=== PATIENT | male | born 1950 | race Hispanic/Latino ===

== ENCOUNTER 2017-12-22 11:18 | Observation (INO) | payer BC, MEDICARE ==
[~2017-12-22] VITALS: Ht 157.5 cm; Wt 81.9 kg
[2017-12-22 11:47] LABS: BASOPHILS % (AUTO) 0.5 % (0.0-5.0); EOSINOPHILS % (AUTO) 0.4 % (0.0-8.0); HEMATOCRIT 29.4 % (42-54); LYMPHOCYTES % (AUTO) 7.2 % (21.0-51.0); MEAN CORPUSCULAR HEMOGLOBIN 31.7 pg (27.0-33.0); MEAN CORPUSCULAR HGB CONC 36.4 g/dL (32.0-36.0); MEAN CORPUSCULAR VOLUME 87.2 fL (79-99); MONOCYTES % (AUTO) 9.2 % (3.0-13.0); NEUTROPHILS % (AUTO) 82.7 % (40.0-77.0); PLATELET COUNT (AUTO) 302 K/uL (130-400); RED BLOOD CELL COUNT(AUTO) 3.37 MIL/uL (4.50-6.20); RED CELL DISTRIBUTION WIDTH 13.7 % (11.0-15.5); WHITE BLOOD COUNT (AUTO) 10.7 K/uL (4.8-10.8)
[2017-12-22 12:04] LABS: ALBUMIN 2.7 g/dL (3.5-5.0); BILIRUBIN,TOTAL 0.6 mg/dL (0.2-1.0); POTASSIUM 3.3 mmol/L (3.5-5.1); TOTAL PROTEIN, SERUM 6.7 g/dL (6.0-8.3)
[2017-12-22] MEDS ORDERED: NITROGLYCERIN 0.4 MG SL TAB SL PRN (13:45)
[2017-12-22] MEDS ORDERED: DiphenhydrAMINE HCL 50 MG/ML VIAL IVP PRN (13:45)
[2017-12-22] MEDS ORDERED: GUAIFENESIN-DM 200/20 MG 10 ML PO PRN (13:45)
[2017-12-22] MEDS ORDERED: ONDANSETRON HCL 4 MG/2 ML VIAL IVP PRN (13:45)
[2017-12-22] MEDS ORDERED: MAG HYDROX/AL HYDROX/SIMETH ES 30 ML SUSP UDCUP PO PRN (13:45)
[2017-12-22] MEDS ORDERED: LACTULOSE 20 GM/30 ML UDCUP PO PRN (13:45)
[2017-12-22] MEDS ORDERED: SODIUM CHLORIDE 0.9% 10 ML VIAL IVP SCH (13:45)
[2017-12-22] MEDS ORDERED: CLONIDINE HCL 0.1 MG TABLET PO PRN (13:45)
[2017-12-22] MEDS ORDERED: ACETAMINOPHEN 325 MG TAB PO PRN ×2 (13:45)
[2017-12-22] MEDS ORDERED: ZOLPIDEM TARTRATE 5 MG TAB PO PRN (13:45)
[2017-12-22] MEDS ORDERED: DIPHENHYDRAMINE HCL 25 MG CAPSULE PO PRN (13:45)
[2017-12-22 14:00] VITALS: BP 156/93
[2017-12-22] MEDS ORDERED: LISI1TAB11 PO (15:20)
[2017-12-22] MEDS ORDERED: HYDR-4153 PO (15:20)
[2017-12-22] MEDS ORDERED: ATOR20TA65 PO (15:20)
[2017-12-22] MEDS ORDERED: PANT40TA25 PO (15:20)
[2017-12-22] MEDS ORDERED: CARV25TA PO (15:20)
[2017-12-22 16:00] VITALS: BP 133/79
[2017-12-22 19:35] VITALS: BP 140/79
[2017-12-22] MEDS: FAMOTIDINE 20MG TAB 20 MG TAB PO SCH (20:51)
[2017-12-22] MEDS: CARVEDILOL 25 MG TABLET PO SCH (20:53)
[2017-12-22] MEDS ORDERED: AEC81 PO (20:54)
[2017-12-22 23:30] VITALS: BP 103/58
[2017-12-23 03:35] VITALS: BP 116/65
[2017-12-23 04:02] LABS: MEAN CORPUSCULAR HGB CONC 35.4 g/dL (32.0-36.0); MEAN CORPUSCULAR VOLUME 87.6 fL (79-99); PLATELET COUNT (AUTO) 268 K/uL (130-400); RED BLOOD CELL COUNT(AUTO) 3.32 MIL/uL (4.50-6.20); RED CELL DISTRIBUTION WIDTH 13.8 % (11.0-15.5); WHITE BLOOD COUNT (AUTO) 9.1 K/uL (4.8-10.8)
[2017-12-23 04:04] LABS: POTASSIUM 3.8 mmol/L (3.5-5.1)
[2017-12-23 08:00] VITALS: BP_SYST 128; BP_SYST 146; BP_DIAS 78; BP_DIAS 80
[2017-12-23] MEDS ORDERED: HYDRALAZINE HCL 25 MG TABLET PO SCH (09:00)
[2017-12-23] MEDS ORDERED: LISINOPRIL 20 MG TABLET PO SCH (09:00)
[2017-12-23] MEDS ORDERED: POTASSIUM CHLORIDE 20 MEQ ERTAB PO PRN (09:15)
[2017-12-23] MEDS ORDERED: POTASSIUM CHLORIDE 10% ELIXIR 20 MEQ/15 ML UDCUP PO PRN (09:15)
[2017-12-23] MEDS ORDERED: POTASSIUM CHLORIDE 20MEQ/100ML 100 ML IV PRN (09:15)
[2017-12-23] MEDS ORDERED: LIDOCAINE HCL-MPF 1% 2ML VIAL IVP PRN (09:15)
[2017-12-23] MEDS ORDERED: MAGNESIUM 2GM PREMIX 50ML 50 ML IV SCH (09:15)
[2017-12-23] MEDS: ASPIRIN 81 MG EC TAB PO SCH (09:19)
[2017-12-23] MEDS: HYDROCHLOROTHIAZIDE 25 MG TABLET PO SCH (09:19)
[2017-12-23] MEDS: ATORVASTATIN CALCIUM 20 MG TABLET PO SCH (09:19)
[2017-12-23] MEDS: CARVEDILOL 25 MG TABLET PO SCH ×2 (09:20→21:52)
[2017-12-23] MEDS: PANTOPRAZOLE SODIUM 40 MG TABLET.DR PO SCH (09:21)
[2017-12-23] MEDS: FAMOTIDINE 20MG TAB 20 MG TAB PO SCH ×2 (09:21→21:52)
[2017-12-23] MEDS: FUROSEMIDE 10 MG/ML 4ML VIAL IV SCH ×2 (09:21→21:51)
[2017-12-23 11:00] VITALS: BP 108/64
[2017-12-23 16:00] VITALS: BP 100/57
[2017-12-23 19:56] VITALS: BP 105/60
[2017-12-23 23:46] VITALS: BP 91/58
[2017-12-24 04:00] VITALS: BP 117/67
[2017-12-24 05:37] LABS: MAGNESIUM 1.9 mg/dL (1.80-2.40); POTASSIUM 3.5 mmol/L (3.5-5.1)
[2017-12-24 08:00] VITALS: BP 127/65
[2017-12-24] MEDS: FUROSEMIDE 10 MG/ML 4ML VIAL IV SCH (10:20)
[2017-12-24] MEDS: FAMOTIDINE 20MG TAB 20 MG TAB PO SCH (10:23)
[2017-12-24] MEDS: ATORVASTATIN CALCIUM 20 MG TABLET PO SCH (10:23)
[2017-12-24] MEDS: ASPIRIN 81 MG EC TAB PO SCH (10:23)
[2017-12-24 10:24] VITALS: BP 127/65
[2017-12-24] MEDS: CARVEDILOL 25 MG TABLET PO SCH (10:24)
[2017-12-24] MEDS: HYDROCHLOROTHIAZIDE 25 MG TABLET PO SCH (10:25)
[2017-12-24] MEDS: PANTOPRAZOLE SODIUM 40 MG TABLET.DR PO SCH (10:25)
[2018-04-08] MEDS ORDERED: LISI2.5T2 PO (16:20)
[2018-04-08] MEDS ORDERED: CLOP75TA32 PO (16:20)
[2018-04-08] MEDS ORDERED: CARV6.25 PO (16:20)
[2018-04-08] MEDS ORDERED: POTA10TA14 PO (16:20)
[2018-04-08] MEDS ORDERED: HYDR12.54 PO (16:20)
[2018-04-08] MEDS ORDERED: ATOR40TA71 PO (16:20)
== END 2017-12-24 14:45 | disposition home or self-care (01) ==
LOC: EDH 11:18 → EDHIP 12:02 → 3AH 13:00
PROVIDERS: ADMIT Family Medicine; ATTEND Family Medicine
DX: E86.1 Hypovolemia (principal); E87.1 Hypo-osmolality and hyponatremia; E87.70 Fluid overload, unspecified; E78.5 Hyperlipidemia, unspecified; I10 Essential (primary) hypertension; R53.81 Other malaise
CPT/HCPCS: 36415 ×3; 80048 ×2; 80053; 83735; 85025; 85027; 87177; 87205; 96365; 96375; 96376 ×2; 99285; G0378 ×51; J1940 ×3; J3475

== ENCOUNTER 2018-02-21 13:58 | Emergency (ER) | payer BC, MEDICARE ==
[~2018-02-21 13:58] MED LIST: AEC81 PO; ATOR20TA65 PO; CARV25TA PO; HYDR-4153 PO; LISI1TAB11 PO; PANT40TA25 PO
[2018-02-21 15:19] LABS: BASOPHILS % (AUTO) 0.9 % (0.0-5.0); EOSINOPHILS % (AUTO) 2.1 % (0.0-8.0); HEMATOCRIT 38.2 % (42-54); LYMPHOCYTES % (AUTO) 19.6 % (21.0-51.0); MEAN CORPUSCULAR HEMOGLOBIN 28.1 pg (27.0-33.0); MEAN CORPUSCULAR HGB CONC 33.4 g/dL (32.0-36.0); MEAN CORPUSCULAR VOLUME 84.2 fL (79-99); MONOCYTES % (AUTO) 7.5 % (3.0-13.0); NEUTROPHILS % (AUTO) 69.9 % (40.0-77.0); PLATELET COUNT (AUTO) 295 K/uL (130-400); RED BLOOD CELL COUNT(AUTO) 4.54 MIL/uL (4.50-6.20); RED CELL DISTRIBUTION WIDTH 15.9 % (11.0-15.5); WHITE BLOOD COUNT (AUTO) 7.6 K/uL (4.8-10.8)
[2018-02-21 15:19] LABS: APPEARANCE,URINE Clear (CLEAR); BILIRUBIN,URINE Negative (NEGATIVE); COLOR,URINE Yellow (YELLOW); GLUCOSE, URINE (UA) Negative (NEGATIVE); KETONES,URINE Negative (NEGATIVE); LEUKOCYTE ESTERASE ,URINE Negative (NEGATIVE); NITRATE,URINE Negative (NEGATIVE); OCCULT BLOOD,URINE Negative (NEGATIVE); PROTEIN,URINE Negative (NEGATIVE); UROBILINOGEN,URINE 0.2 mg/dL (0.2-1.0)
[2018-02-21 15:30] LABS: CREATININE 0.9 mg/dL (0.5-1.5); POTASSIUM 3.5 mmol/L (3.5-5.1)
[2018-02-21 15:35] LABS: ALBUMIN 3.9 g/dL (3.5-5.0); TOTAL PROTEIN, SERUM 7.7 g/dL (6.0-8.3)
[2018-02-21 15:42] LABS: B-TYPE NATRIURETIC PEPTIDE 3180 pg/mL (0-100)
[2018-02-21] MEDS ORDERED: ASPIRIN 325 MG TABLET ONE (16:38)
[2018-04-08] MEDS ORDERED: CLOP75TA32 PO (16:20)
[2018-04-08] MEDS ORDERED: HYDR12.54 PO (16:20)
[2018-04-08] MEDS ORDERED: ATOR40TA71 PO (16:20)
[2018-04-08] MEDS ORDERED: LISI2.5T2 PO (16:20)
[2018-04-08] MEDS ORDERED: CARV6.25 PO (16:20)
[2018-04-08] MEDS ORDERED: POTA10TA14 PO (16:20)
== END 2018-02-21 18:50 ==
LOC: EDH 13:58
DX: R20.0 Anesthesia of skin (principal); R42 Dizziness and giddiness; E78.5 Hyperlipidemia, unspecified; I10 Essential (primary) hypertension; Z86.73 Personal history of transient ischemic attack (TIA), and cerebral infarction without residual deficits
CPT/HCPCS: 36415; 70450; 71046; 80053; 81003; 83880; 84484; 85025; 93005

== ENCOUNTER 2018-04-10 06:26 | Day surgery (SDC) | payer BC, MEDICARE ==
[2018-04-08 11:21] VITALS: BP 118/72
[2018-04-08 11:30] LABS: BASOPHILS % (AUTO) 1.1 % (0.0-5.0); EOSINOPHILS % (AUTO) 2.4 % (0.0-8.0); HEMATOCRIT 36.2 % (42-54); LYMPHOCYTES % (AUTO) 17.9 % (21.0-51.0); MEAN CORPUSCULAR HEMOGLOBIN 26.5 pg (27.0-33.0); MEAN CORPUSCULAR HGB CONC 33.9 g/dL (32.0-36.0); MONOCYTES % (AUTO) 7.7 % (3.0-13.0); NEUTROPHILS % (AUTO) 70.9 % (40.0-77.0); PLATELET COUNT (AUTO) 201 K/uL (130-400); RED BLOOD CELL COUNT(AUTO) 4.64 MIL/uL (4.50-6.20); RED CELL DISTRIBUTION WIDTH 17.9 % (11.0-15.5); WHITE BLOOD COUNT (AUTO) 6.8 K/uL (4.8-10.8)
[2018-04-08 11:32] LABS: APPEARANCE,URINE Clear (CLEAR); BILIRUBIN,URINE Negative (NEGATIVE); COLOR,URINE Yellow (YELLOW); GLUCOSE, URINE (UA) Negative (NEGATIVE); KETONES,URINE Negative (NEGATIVE); LEUKOCYTE ESTERASE ,URINE Trace (NEGATIVE); NITRATE,URINE Negative (NEGATIVE); OCCULT BLOOD,URINE Negative (NEGATIVE); PROTEIN,URINE Trace (NEGATIVE)
[2018-04-08 11:46] LABS: POTASSIUM 4.4 mmol/L (3.5-5.1)
[2018-04-08 11:48] LABS: BACTERIA,URINE Rare /HPF (None Seen); SQUAMOUS EPITHELIAL CELL,UR Rare /HPF (0-2); WBC,URINE 0-1 /HPF (0-1)
[2018-04-08 11:53] LABS: PARTIAL THROMBOPLASTIN TIME 31.3 SEC (26.3-35.5)
[2018-04-08 12:09] LABS: INR 1.18 (0.85-1.15); PROTHROMBIN TIME 12.3 SEC (9.6-11.6)
[2018-04-10] VITALS (9 sets, daily range): BP systolic 101–128; BP diastolic 67–86
[~2018-04-10] VITALS: Ht 158.8 cm; Wt 73.5 kg
[~2018-04-10 06:26] MED LIST changes: -AEC81 PO; -ATOR20TA65 PO; +ATOR40TA71 PO; -CARV25TA PO; +CARV6.25 PO; +CLOP75TA32 PO; -HYDR-4153 PO; +HYDR12.54 PO; -LISI1TAB11 PO; +LISI2.5T2 PO; -PANT40TA25 PO; +POTA10TA14 PO
[2018-04-10] MEDS ORDERED: BIVALIRUDIN 250 MG/VIAL IV ONE (10:15)
[2018-04-10] MEDS ORDERED: NITROGLYCERIN 5 MG/ML 10 ML VIAL IV ONE (10:15)
[2018-04-10] MEDS ORDERED: IOPAMIDOL-370 100 ML VIAL IV ONE (10:16)
[2018-04-10] MEDS ORDERED: LIDOCAINE HCL 2% 20ML ONE (10:16)
[2018-04-10] MEDS ORDERED: ISOVUE-370 50ML VIAL IV ONE (10:16)
[2018-04-10] MEDS ORDERED: FURO40TA5 PO (12:15)
[2018-04-10] MEDS ORDERED: FUROSEMIDE 40 MG TABLET PO SCH (12:15)
== END 2018-04-10 16:45 | disposition home or self-care (01) ==
LOC: DAH 06:26
PROVIDERS: ATTEND Internal Medicine Cardiovascular Disease
DX: I25.10 Atherosclerotic heart disease of native coronary artery without angina pectoris (principal); E78.5 Hyperlipidemia, unspecified; I35.0 Nonrheumatic aortic (valve) stenosis; Z86.73 Personal history of transient ischemic attack (TIA), and cerebral infarction without residual deficits; Z79.899 Other long term (current) drug therapy; Z88.0 Allergy status to penicillin; Z88.8 Allergy status to other drugs, medicaments and biological substances; I42.0 Dilated cardiomyopathy; I63.531 Cerebral infarction due to unspecified occlusion or stenosis of right posterior cerebral artery; I11.0 Hypertensive heart disease with heart failure; I50.23 Acute on chronic systolic (congestive) heart failure; R00.0 Tachycardia, unspecified
CPT/HCPCS: 36415; 71045; 80048; 81001; 85025; 85610; 85730; 93005; 93460; A4606; C1760; C1769; C1893; C1894; J1644; J3490 ×2; Q9967 ×2; J0583

== ENCOUNTER 2018-04-17 10:30 | Inpatient (IN) | payer BC, MEDICARE ==
[~2018-04-17] VITALS: Ht 160 cm; Wt 75.6 kg
[~2018-04-17 10:30] MED LIST changes: -CLOP75TA32 PO; +FURO40TA5 PO; -HYDR12.54 PO
[2018-04-17 12:47] VITALS: BP 112/67
[2018-04-17 13:14] LABS: BASOPHILS % (AUTO) 0.9 % (0.0-5.0); EOSINOPHILS % (AUTO) 0.9 % (0.0-8.0); HEMATOCRIT 36.3 % (42-54); LYMPHOCYTES % (AUTO) 20.9 % (21.0-51.0); MEAN CORPUSCULAR HEMOGLOBIN 26.8 pg (27.0-33.0); MEAN CORPUSCULAR HGB CONC 33.8 g/dL (32.0-36.0); MEAN CORPUSCULAR VOLUME 79.4 fL (79-99); MONOCYTES % (AUTO) 7.2 % (3.0-13.0); NEUTROPHILS % (AUTO) 70.1 % (40.0-77.0); PLATELET COUNT (AUTO) 248 K/uL (130-400); RED BLOOD CELL COUNT(AUTO) 4.57 MIL/uL (4.50-6.20); RED CELL DISTRIBUTION WIDTH 18.7 % (11.0-15.5); WHITE BLOOD COUNT (AUTO) 6.6 K/uL (4.8-10.8)
[2018-04-17 13:21] LABS: INR 1.44 (0.85-1.15)
[2018-04-17 13:22] LABS: HEMOGLOBIN A1C 6.4 % (4.0-6.0)
[2018-04-17 13:23] LABS: ALBUMIN 3.7 g/dL (3.5-5.0); BILIRUBIN,TOTAL 1.1 mg/dL (0.2-1.0); CREATININE 1.3 mg/dL (0.5-1.5); POTASSIUM 5.1 mmol/L (3.5-5.1)
[2018-04-21] VITALS (31 sets, daily range): BP systolic 75–179; BP diastolic 25–91
[2018-04-21] MEDS ORDERED: CEFUROXIME SODIUM 1.5 GM VIAL IVP SCH (08:00)
[2018-04-21] MEDS ORDERED: SODIUM CHLORIDE 0.9% 1000ML 1,000 ML IV ONE (11:07)
[2018-04-21] MEDS ORDERED: CLINDAMYCIN 900 MG/D5% WATER 50 ML IV ONE ×2 (11:23→15:36)
[2018-04-21] MEDS ORDERED: NITROGLYCERIN 50 MG/D5% WATER 1 BOT ONE (11:28)
[2018-04-21] MEDS ORDERED: AMINOCAPROIC ACID 250 MG/ML 20 ML VIAL IV ONE ×3 (11:29→12:00)
[2018-04-21] MEDS ORDERED: ROCURONIUM BROMIDE 10MG/1ML 5ML VL ONE ×3 (11:31→13:34)
[2018-04-21] MEDS ORDERED: HEPARIN SODIUM 1000UNIT/ML 10ML VIAL ONE (11:31)
[2018-04-21] MEDS ORDERED: GLYCOPYRROLATE 0.2 MG/ML 5 ML VIAL ONE (11:31)
[2018-04-21] MEDS ORDERED: MILRINONE-D5W 20 MG/100 ML 0 ML IV ONE (11:31)
[2018-04-21] MEDS ORDERED: LIDOCAINE PF 2% 5ML ABBOJECT ONE (11:31)
[2018-04-21] MEDS ORDERED: NEOSTIGMINE 5MG/5ML SYR IV ONE (11:31)
[2018-04-21] MEDS ORDERED: ESMOLOL HCL 10 MG/ML 10 ML VIAL ONE (11:31)
[2018-04-21] MEDS ORDERED: PROTAMINE SULFATE 10 MG/ML 25ML VIAL IV ONE (11:31)
[2018-04-21] MEDS ORDERED: EPINEPHRINE 1 MG/ML AMPULE ONE (11:31)
[2018-04-21] MEDS ORDERED: PROPOFOL 10 MG/ML 20ML VIAL IV ONE (11:32)
[2018-04-21] MEDS ORDERED: NOREPINEPHRINE BITARTRATE 1 MG/1 ML ML IV ONE ×2 (11:32→11:51)
[2018-04-21] MEDS ORDERED: FENTANYL CITRATE PF 50 MCG/1 ML 20ML VIAL IJ ONE (11:32)
[2018-04-21] MEDS ORDERED: MIDAZOLAM HCL 1 MG/ML 5ML VIAL ONE (11:32)
[2018-04-21] MEDS ORDERED: DELNIDO FORMULA 2 BAG IV ONE (11:35)
[2018-04-21 11:49] LABS: INR 1.47 (0.85-1.15); PARTIAL THROMBOPLASTIN TIME 32.1 SEC (26.3-35.5); PROTHROMBIN TIME 15.3 SEC (9.6-11.6)
[2018-04-21] MEDS ORDERED: CALCIUM CHLORIDE 100 MG/ML 10 ML SYG IVP ONE (12:00)
[2018-04-21] MEDS ORDERED: ROCURONIUM BROMIDE 10MG/1ML 5ML VL IV ONE (12:00)
[2018-04-21] MEDS ORDERED: HEPARIN SODIUM 1000UNIT/ML 10ML VIAL IV ONE (12:00)
[2018-04-21] MEDS ORDERED: LIDOCAINE PF 2% 5ML ABBOJECT IVP ONE (12:00)
[2018-04-21] MEDS ORDERED: SODIUM BICARB 8.4% 50ML SYRINGE IVP ONE (12:00)
[2018-04-21] MEDS ORDERED: ALBUMIN (HUMAN) 25% 50 ML IV ONE (12:00)
[2018-04-21] MEDS ORDERED: ETOMIDATE 2 MG/ML 10 ML VIAL IVP ONE (12:00)
[2018-04-21] MEDS ORDERED: MANNITOL 25% 50ML VIAL IV ONE (12:00)
[2018-04-21] MEDS: AMBU PUMP 1 EACH EACH MISC SCH ×2 (12:15→19:41)
[2018-04-21 12:16] LABS: ABG BASE EXCESS -7.6 mmol/L (-2.0-3.0); ABG HCO3 17.4 mmol/L (21.0-28.0); ABG OXYGEN SATURATION 99.5 % (95.0-99.0); ABG PCO2 34 mmHg (35-48)
[2018-04-21] MEDS ORDERED: BACITRACIN 50,000 UNIT VIAL ONE (12:16)
[2018-04-21] MEDS ORDERED: OCTYL 2-CYANOACRYLATE 1 EACH TP ONE (12:16)
[2018-04-21] MEDS ORDERED: THROMBIN-JMI 5000 UNIT/VIAL TP ONE (12:26)
[2018-04-21] MEDS ORDERED: SODIUM BICARB 50MEQ 50ML VIAL ONE ×3 (12:30→23:18)
[2018-04-21] MEDS ORDERED: METHYLPREDNISOLONE SOD SUCC 1,000 MG/8 ML ML IV ONE (13:00)
[2018-04-21] MEDS ORDERED: MILRINONE-D5W 20 MG/100 ML 100 ML IV ONE ×2 (13:38→20:46)
[2018-04-21 14:42] LABS: ABG BASE EXCESS -0.7 mmol/L (-2.0-3.0); ABG HCO3 23.3 mmol/L (21.0-28.0); ABG OXYGEN SATURATION 99.1 % (95.0-99.0); ABG PCO2 36 mmHg (35-48)
[2018-04-21 15:11] LABS: ABG BASE EXCESS -0.9 mmol/L (-2.0-3.0); ABG HCO3 22.5 mmol/L (21.0-28.0); ABG OXYGEN SATURATION 99.1 % (95.0-99.0); ABG PCO2 32 mmHg (35-48)
[2018-04-21] MEDS ORDERED: SODIUM CHLORIDE 0.9% 500ML 500 ML IV SCH (15:31)
[2018-04-21] MEDS ORDERED: MORPHINE SULFATE 2 MG/ML 1ML SYG IV PRN (15:45)
[2018-04-21] MEDS ORDERED: NITROGLYCERIN 50 MG/D5% WATER 250 BOT IV SCH (15:45)
[2018-04-21] MEDS ORDERED: PROPOFOL 1000 MG/100 ML 100 ML IV PRN (15:45)
[2018-04-21] MEDS ORDERED: HYDROCODONE/ACETAMINOPHEN 5/325 MG TAB PO PRN ×2 (15:45)
[2018-04-21] MEDS ORDERED: INSULIN REGULAR, HUMAN 3ML 100 UNIT in SODIUM CHLORIDE 0.9% 99 ML IV SCH ×2 (15:45)
[2018-04-21] MEDS ORDERED: POTASSIUM PHOS 15 mMOL+NS250ML 250 ML IV PRN (15:45)
[2018-04-21] MEDS ORDERED: SODIUM CHLORIDE 0.9% 250 ML IV PRN (15:45)
[2018-04-21] MEDS ORDERED: DEXTROSE 50%-WATER 50 ML DISP.SYRIN IV PRN (15:45)
[2018-04-21] MEDS: AMINOCAPROIC ACID 15,000 MG in SODIUM CHLORIDE 0.9% 250 ML IV SCH ×2 (15:45→19:40)
[2018-04-21] MEDS ORDERED: NOREPINEPHRINE 4MG/NS 250ML 250 ML IV PRN (15:45)
[2018-04-21] MEDS ORDERED: NICARDIPINE HCL 100 MG in SODIUM CHLORIDE 0.9% 100 ML IV PRN (15:45)
[2018-04-21] MEDS ORDERED: SODIUM CHLORIDE 0.9% 1000ML 1,000 ML IV SCH (15:45)
[2018-04-21] MEDS ORDERED: SODIUM CHLORIDE 0.9% 10 ML VIAL IVP PRN (15:45)
[2018-04-21] MEDS ORDERED: ACETAMINOPHEN 650 MG SUPPOSITORY RC PRN (15:45)
[2018-04-21] MEDS ORDERED: ALBUMIN (HUMAN) 5% 250 ML IV PRN (15:45)
[2018-04-21] MEDS ORDERED: MORPHINE SULFATE 4 MG/1ML SYG IV PRN (15:45)
[2018-04-21] MEDS ORDERED: ONDANSETRON HCL 4 MG/2 ML VIAL IV PRN (15:45)
[2018-04-21] MEDS ORDERED: CALCIUM GLUCONATE 1 GM in SODIUM CHLORIDE 0.9% 50 ML IV PRN (15:45)
[2018-04-21] MEDS ORDERED: GLUCAGON 1MG KIT 1 MG ML IM PRN (15:45)
[2018-04-21] MEDS ORDERED: EPINEPHRINE 2 MG in SODIUM CHLORIDE 0.9% 250 ML IV PRN (15:45)
[2018-04-21] MEDS ORDERED: ACETAMINOPHEN 325 MG TAB PO PRN (15:45)
[2018-04-21] MEDS ORDERED: EPHEDRINE SULFATE 50 MG/ML AMPULE ONE (16:18)
[2018-04-21 16:53] LABS: ABG BASE EXCESS -2.9 mmol/L (-2.0-3.0); ABG OXYGEN SATURATION 99.1 % (95.0-99.0); ABG PCO2 29 mmHg (35-48)
[2018-04-21 16:56] LABS: HEMATOCRIT 30.4 % (42-54); MEAN CORPUSCULAR HGB CONC 33.6 g/dL (32.0-36.0); MEAN CORPUSCULAR VOLUME 77.4 fL (79-99); PLATELET COUNT (AUTO) 133 K/uL (130-400); RED BLOOD CELL COUNT(AUTO) 3.93 MIL/uL (4.50-6.20); RED CELL DISTRIBUTION WIDTH 18.5 % (11.0-15.5); WHITE BLOOD COUNT (AUTO) 11.9 K/uL (4.8-10.8)
[2018-04-21 17:08] LABS: CREATININE 1.3 mg/dL (0.5-1.5); PHOSPHORUS 5.1 mg/dL (2.5-4.9); POTASSIUM 3.8 mmol/L (3.5-5.1)
[2018-04-21] MEDS: POTASSIUM CHLORIDE 20MEQ/100ML 100 ML IV PRN ×3 (17:21→23:21)
[2018-04-21 19:04] LABS: ABG BASE EXCESS -3.4 mmol/L (-2.0-3.0); ABG PCO2 23 mmHg (35-48)
[2018-04-21] MEDS ORDERED: ALBUMIN (HUMAN) 5% 250 ML IV ONE ×3 (19:22→22:50)
[2018-04-21] MEDS ORDERED: EPINEPHRINE 8 MG in SODIUM CHLORIDE 0.9% 250 ML IV PRN (19:30)
[2018-04-21] MEDS: SODIUM BICARB 8.4% 50ML SYRINGE IV PRN ×2 (19:41→23:21)
[2018-04-21 20:11] LABS: ABG BASE EXCESS -0.3 mmol/L (-2.0-3.0); ABG HCO3 21.7 mmol/L (21.0-28.0); ABG OXYGEN SATURATION 98.5 % (95.0-99.0); ABG PCO2 28 mmHg (35-48)
[2018-04-21] MEDS ORDERED: MILRINONE-D5W 20 MG/100 ML 100 ML IV SCH (20:45)
[2018-04-21] MEDS ORDERED: SODIUM BICARB 50MEQ 50ML VIAL IV ONE (22:45)
[2018-04-21] MEDS: CLINDAMYCIN 900 MG/D5% WATER 50 ML IV SCH (23:14)
[2018-04-21 23:16] LABS: ABG BASE EXCESS -2.8 mmol/L (-2.0-3.0); ABG HCO3 20.8 mmol/L (21.0-28.0); ABG OXYGEN SATURATION 97.9 % (95.0-99.0); ABG PCO2 32 mmHg (35-48)
[2018-04-22] VITALS (48 sets, daily range): BP systolic 78–181; BP diastolic 40–103
[2018-04-22 00:13] LABS: ABG BASE EXCESS -1.4 mmol/L (-2.0-3.0); ABG HCO3 21.9 mmol/L (21.0-28.0); ABG OXYGEN SATURATION 98.9 % (95.0-99.0); ABG PCO2 33 mmHg (35-48)
[2018-04-22 01:51] LABS: ABG BASE EXCESS -2.6 mmol/L (-2.0-3.0); ABG HCO3 20.1 mmol/L (21.0-28.0); ABG OXYGEN SATURATION 99.2 % (95.0-99.0); ABG PCO2 28 mmHg (35-48)
[2018-04-22] MEDS ORDERED: SODIUM BICARB 50MEQ 50ML VIAL ONE (02:02)
[2018-04-22 02:06] LABS: HEMATOCRIT 27.3 % (42-54); MEAN CORPUSCULAR HEMOGLOBIN 26.1 pg (27.0-33.0); MEAN CORPUSCULAR HGB CONC 33.3 g/dL (32.0-36.0); MEAN CORPUSCULAR VOLUME 78.4 fL (79-99); NUCLEATED RED BLOOD CELLS 0.1 % (0.0-0.19); PLATELET COUNT (AUTO) 119 K/uL (130-400); RED BLOOD CELL COUNT(AUTO) 3.48 MIL/uL (4.50-6.20); RED CELL DISTRIBUTION WIDTH 18.7 % (11.0-15.5); WHITE BLOOD COUNT (AUTO) 11.6 K/uL (4.8-10.8)
[2018-04-22 02:07] LABS: CREATININE 1.6 mg/dL (0.5-1.5); POTASSIUM 4.1 mmol/L (3.5-5.1)
[2018-04-22 02:17] LABS: MAGNESIUM 1.8 mg/dL (1.80-2.40); PHOSPHORUS 4.7 mg/dL (2.5-4.9)
[2018-04-22] MEDS ORDERED: CALCIUM GLUCONATE 1 GM/10 ML VIAL IV ONE (03:17)
[2018-04-22 04:31] LABS: ABG BASE EXCESS 1.6 mmol/L (-2.0-3.0); ABG HCO3 23.1 mmol/L (21.0-28.0); ABG OXYGEN SATURATION 97.8 % (95.0-99.0); ABG PCO2 26 mmHg (35-48)
[2018-04-22] MEDS: POTASSIUM CHLORIDE 20MEQ/100ML 100 ML IV PRN (04:41)
[2018-04-22] MEDS: CLINDAMYCIN 900 MG/D5% WATER 50 ML IV SCH ×2 (06:59→16:18)
[2018-04-22] MEDS: MAGNESIUM 2GM PREMIX 50ML 50 ML IV PRN (08:18)
[2018-04-22] MEDS ORDERED: FAMOTIDINE/PF 20 MG/2 ML VIAL IV SCH (09:00)
[2018-04-22 09:08] LABS: ABG BASE EXCESS 2.5 mmol/L (-2.0-3.0); ABG HCO3 25.2 mmol/L (21.0-28.0); ABG PCO2 33 mmHg (35-48)
[2018-04-22 10:17] LABS: ABG BASE EXCESS 3.3 mmol/L (-2.0-3.0); ABG OXYGEN SATURATION 99.1 % (95.0-99.0); ABG PCO2 38 mmHg (35-48)
[2018-04-22] MEDS ORDERED: NICARDIPINE HCL 25 MG/10 ML ML IV ONE (22:27)
[2018-04-22] MEDS ORDERED: SODIUM CHLORIDE 0.9% 100 ML IV ONE (22:28)
[2018-04-23] VITALS (25 sets, daily range): BP systolic 113–164; BP diastolic 40–111
[2018-04-23 04:29] LABS: CREATININE 1.2 mg/dL (0.5-1.5); MAGNESIUM 2.1 mg/dL (1.80-2.40); PHOSPHORUS 4.8 mg/dL (2.5-4.9); POTASSIUM 3.5 mmol/L (3.5-5.1)
[2018-04-23] MEDS: POTASSIUM CHLORIDE 20MEQ/100ML 100 ML IV PRN ×2 (04:49→06:04)
[2018-04-23] MEDS ORDERED: FUROSEMIDE 40 MG TABLET PO SCH (10:30)
[2018-04-23] MEDS: CARVEDILOL 3.125 MG TABLET PO SCH ×2 (10:56→20:19)
[2018-04-23] MEDS: ATORVASTATIN CALCIUM 40 MG TABLET PO SCH (20:19)
[2018-04-23] MEDS: FUROSEMIDE 20 MG TABLET PO SCH (20:20)
[2018-04-24] VITALS (15 sets, daily range): BP systolic 121–159; BP diastolic 71–100
[2018-04-24 05:03] LABS: CREATININE 0.9 mg/dL (0.5-1.5); MAGNESIUM 1.9 mg/dL (1.80-2.40); PHOSPHORUS 3.9 mg/dL (2.5-4.9)
[2018-04-24 05:08] LABS: POTASSIUM 2.8 mmol/L (3.5-5.1)
[2018-04-24 05:43] LABS: HEMATOCRIT 27.7 % (42-54); MEAN CORPUSCULAR HEMOGLOBIN 26.6 pg (27.0-33.0); MEAN CORPUSCULAR HGB CONC 34.4 g/dL (32.0-36.0); MEAN CORPUSCULAR VOLUME 77.2 fL (79-99); NUCLEATED RED BLOOD CELLS 0.2 % (0.0-0.19); RED BLOOD CELL COUNT(AUTO) 3.58 MIL/uL (4.50-6.20); RED CELL DISTRIBUTION WIDTH 18.7 % (11.0-15.5)
[2018-04-24 05:51] LABS: PLATELET COUNT (AUTO) 41 K/uL (130-400)
[2018-04-24 05:55] LABS: POTASSIUM 2.8 mmol/L (3.5-5.1)
[2018-04-24] MEDS: POTASSIUM CHLORIDE 20MEQ/100ML 100 ML IV PRN ×3 (06:01→08:56)
[2018-04-24] MEDS: FAMOTIDINE 20MG TAB 20 MG TAB PO SCH (08:55)
[2018-04-24] MEDS: LISINOPRIL 5 MG TABLET PO SCH (08:55)
[2018-04-24] MEDS: FUROSEMIDE 20 MG TABLET PO SCH ×2 (08:56→18:04)
[2018-04-24] MEDS: POTASSIUM CHLORIDE 20 MEQ ERTAB PO SCH ×2 (08:56→21:00)
[2018-04-24] MEDS ORDERED: CARVEDILOL 6.25 MG TABLET PO SCH (09:00)
[2018-04-24] MEDS ORDERED: POTASSIUM CHLORIDE 10 MEQ/TAB.SA PO SCH (09:00)
[2018-04-24] MEDS ORDERED: LISINOPRIL 2.5 MG TABLET PO SCH (09:00)
[2018-04-24] MEDS ORDERED: FUROSEMIDE 40 MG TABLET PO SCH (09:00)
[2018-04-24] MEDS ORDERED: TRAMADOL HCL 50 MG TABLET PO PRN ×2 (11:30)
[2018-04-24] MEDS ORDERED: POTASSIUM CHLORIDE 10 MEQ/TAB.SA PO ONE ×4 (21:50→22:31)
[2018-04-24] MEDS: ATORVASTATIN CALCIUM 40 MG TABLET PO SCH (21:55)
[2018-04-25 04:06] LABS: HEMATOCRIT 27.9 % (42-54); MEAN CORPUSCULAR HEMOGLOBIN 26.2 pg (27.0-33.0); MEAN CORPUSCULAR HGB CONC 34.2 g/dL (32.0-36.0); MEAN CORPUSCULAR VOLUME 76.8 fL (79-99); NUCLEATED RED BLOOD CELLS 0.1 % (0.0-0.19); PLATELET COUNT (AUTO) 22 K/uL (130-400); RED BLOOD CELL COUNT(AUTO) 3.63 MIL/uL (4.50-6.20); RED CELL DISTRIBUTION WIDTH 19.1 % (11.0-15.5); WHITE BLOOD COUNT (AUTO) 14.2 K/uL (4.8-10.8)
[2018-04-25 04:09] VITALS: BP 137/82
[2018-04-25 04:18] LABS: CREATININE 0.9 mg/dL (0.5-1.5); POTASSIUM 3.3 mmol/L (3.5-5.1)
[2018-04-25 07:00] VITALS: BP_SYST 130; BP_SYST 133; BP_DIAS 74; BP_DIAS 76
[2018-04-25 11:00] VITALS: BP 98/61
[2018-04-25] MEDS: LISINOPRIL 5 MG TABLET PO SCH (12:12)
[2018-04-25] MEDS: FAMOTIDINE 20MG TAB 20 MG TAB PO SCH (12:12)
[2018-04-25] MEDS: FUROSEMIDE 20 MG TABLET PO SCH ×2 (12:12→17:16)
[2018-04-25] MEDS: POTASSIUM CHLORIDE 20 MEQ ERTAB PO SCH ×2 (12:12→17:16)
[2018-04-25 12:19] VITALS: BP 116/70
[2018-04-25] MEDS ORDERED: LIDOCAINE HCL-MPF 1% 2ML VIAL IVP PRN (14:00)
[2018-04-25] MEDS ORDERED: POTASSIUM CHLORIDE 20MEQ/100ML 100 ML IV PRN (14:00)
[2018-04-25] MEDS ORDERED: POTASSIUM CHLORIDE 20 MEQ ERTAB PO PRN (14:00)
[2018-04-25] MEDS: POTASSIUM CHLORIDE 10% ELIXIR 20 MEQ/15 ML UDCUP PO PRN (17:18)
[2018-04-25 19:48] VITALS: BP 149/91
[2018-04-25] MEDS: ATORVASTATIN CALCIUM 40 MG TABLET PO SCH (22:08)
[2018-04-25 23:45] VITALS: BP 136/86
[2018-04-26 04:04] VITALS: BP 142/90
[2018-04-26 04:32] LABS: HEMATOCRIT 26.7 % (42-54); MEAN CORPUSCULAR HEMOGLOBIN 26.3 pg (27.0-33.0); MEAN CORPUSCULAR HGB CONC 34.3 g/dL (32.0-36.0); MEAN CORPUSCULAR VOLUME 76.7 fL (79-99); NUCLEATED RED BLOOD CELLS 0.1 % (0.0-0.19); PLATELET COUNT (AUTO) 17 K/uL (130-400); RED BLOOD CELL COUNT(AUTO) 3.48 MIL/uL (4.50-6.20); RED CELL DISTRIBUTION WIDTH 18.9 % (11.0-15.5); WHITE BLOOD COUNT (AUTO) 9.7 K/uL (4.8-10.8)
[2018-04-26 05:05] LABS: LYMPHOCYTES % (MANUAL) 11 % (22-44); MONOCYTES % (MANUAL) 7 % (2-9); PLATELET MORPHOLOGY COMMENT MARKED DECREASED; SEGMENTED NEUTROPHILS % 82 % (40-70)
[2018-04-26 05:07] LABS: MAN.DIFF COMMENT-IMPRESSION MANUAL DIF
[2018-04-26 07:00] VITALS: BP 116/68
[2018-04-26 07:35] LABS: MAGNESIUM 1.5 mg/dL (1.80-2.40); POTASSIUM 3.1 mmol/L (3.5-5.1)
[2018-04-26] MEDS: POTASSIUM CHLORIDE 20 MEQ ERTAB PO SCH ×2 (09:00→21:00)
[2018-04-26] MEDS: LISINOPRIL 5 MG TABLET PO SCH (10:22)
[2018-04-26] MEDS: FUROSEMIDE 20 MG TABLET PO SCH ×2 (10:22→22:38)
[2018-04-26] MEDS: FAMOTIDINE 20MG TAB 20 MG TAB PO SCH (10:22)
[2018-04-26] MEDS: POTASSIUM CHLORIDE 10% ELIXIR 20 MEQ/15 ML UDCUP PO PRN ×4 (10:26→22:47)
[2018-04-26] MEDS: MAGNESIUM 2GM PREMIX 50ML 50 ML IV PRN (10:36)
[2018-04-26 11:00] VITALS: BP 128/71
[2018-04-26] MEDS ORDERED: DEXAMETHASONE 10MG/ML 1ML VIAL 10 MG in SODIUM CHLORIDE 0.9% 50 ML IV SCH (12:45)
[2018-04-26] MEDS: CYANOCOBALAMIN (VITAMIN B-12) 1,000 MCG TABLET PO SCH (15:58)
[2018-04-26] MEDS: FOLIC ACID 1 MG TABLET PO SCH (15:59)
[2018-04-26] MEDS: FONDAPARINUX SODIUM 7.5 MG/0.6 ML SQ SCH (15:59)
[2018-04-26 16:00] VITALS: BP 108/76
[2018-04-26 19:33] VITALS: BP 139/79
[2018-04-26] MEDS: ATORVASTATIN CALCIUM 40 MG TABLET PO SCH (22:36)
[2018-04-26] MEDS: POTASSIUM CHLORIDE 10 MEQ/TAB.SA PO ONE ×4 (22:37→22:52)
[2018-04-26] MEDS ORDERED: POTASSIUM CHLORIDE 10 MEQ/TAB.SA PO ONE ×2 (22:53→22:54)
[2018-04-26 23:49] VITALS: BP 145/87
[2018-04-27 03:44] VITALS: BP 148/81
[2018-04-27 05:04] LABS: HEMATOCRIT 27.1 % (42-54); MEAN CORPUSCULAR HEMOGLOBIN 26.4 pg (27.0-33.0); MEAN CORPUSCULAR HGB CONC 34.6 g/dL (32.0-36.0); MEAN CORPUSCULAR VOLUME 76.2 fL (79-99); NUCLEATED RED BLOOD CELLS 0.1 % (0.0-0.19); PLATELET COUNT (AUTO) 29 K/uL (130-400); RED BLOOD CELL COUNT(AUTO) 3.56 MIL/uL (4.50-6.20); RED CELL DISTRIBUTION WIDTH 19.2 % (11.0-15.5); WHITE BLOOD COUNT (AUTO) 11.1 K/uL (4.8-10.8)
[2018-04-27 05:20] LABS: CREATININE 0.8 mg/dL (0.5-1.5); POTASSIUM 4.3 mmol/L (3.5-5.1)
[2018-04-27 07:15] VITALS: BP 161/95
[2018-04-27] MEDS ORDERED: FONDAPARINUX SODIUM 7.5 MG/0.6 ML SQ SCH (09:00)
[2018-04-27] MEDS ORDERED: FOLIC ACID 1 MG TABLET PO SCH (09:00)
[2018-04-27] MEDS ORDERED: CYANOCOBALAMIN (VITAMIN B-12) 1,000 MCG TABLET PO SCH (09:00)
[2018-04-27] MEDS: CYANOCOBALAMIN (VITAMIN B-12) 1,000 MCG TABLET PO SCH (09:11)
[2018-04-27] MEDS: FUROSEMIDE 20 MG TABLET PO SCH ×2 (09:11→21:40)
[2018-04-27] MEDS: FAMOTIDINE 20MG TAB 20 MG TAB PO SCH (09:11)
[2018-04-27] MEDS: FOLIC ACID 1 MG TABLET PO SCH (09:11)
[2018-04-27] MEDS: LISINOPRIL 5 MG TABLET PO SCH (09:12)
[2018-04-27] MEDS: FONDAPARINUX SODIUM 7.5 MG/0.6 ML SQ SCH (09:13)
[2018-04-27] MEDS: POTASSIUM CHLORIDE 20 MEQ ERTAB PO SCH ×2 (09:36→21:32)
[2018-04-27] MEDS: MAGNESIUM 2GM PREMIX 50ML 50 ML IV PRN (10:36)
[2018-04-27 11:40] VITALS: BP 140/89
[2018-04-27] MEDS ORDERED: VANCOMYCIN 1GM+NS 250ML 250 ML IV PRN (13:15)
[2018-04-27 16:15] VITALS: BP 148/86
[2018-04-27 19:45] VITALS: BP 142/82
[2018-04-27] MEDS: ATORVASTATIN CALCIUM 40 MG TABLET PO SCH (21:31)
[2018-04-28] VITALS (12 sets, daily range): BP systolic 67–152; BP diastolic 48–93
[2018-04-28 04:39] LABS: BASOPHILS % (AUTO) 0.1 % (0.0-5.0); EOSINOPHILS % (AUTO) 0.8 % (0.0-8.0); HEMATOCRIT 25.6 % (42-54); LYMPHOCYTES % (AUTO) 4.5 % (21.0-51.0); MEAN CORPUSCULAR HEMOGLOBIN 25.7 pg (27.0-33.0); MEAN CORPUSCULAR HGB CONC 33.8 g/dL (32.0-36.0); MEAN CORPUSCULAR VOLUME 76.1 fL (79-99); MONOCYTES % (AUTO) 6.1 % (3.0-13.0); NEUTROPHILS % (AUTO) 88.5 % (40.0-77.0); NUCLEATED RED BLOOD CELLS 0.1 % (0.0-0.19); PLATELET COUNT (AUTO) 70 K/uL (130-400); RED BLOOD CELL COUNT(AUTO) 3.36 MIL/uL (4.50-6.20); RED CELL DISTRIBUTION WIDTH 18.8 % (11.0-15.5); WHITE BLOOD COUNT (AUTO) 15.7 K/uL (4.8-10.8)
[2018-04-28 04:46] LABS: CREATININE 0.7 mg/dL (0.5-1.5); POTASSIUM 3.6 mmol/L (3.5-5.1)
[2018-04-28 04:50] LABS: INR 1.25 (0.85-1.15); PROTHROMBIN TIME 13.1 SEC (9.6-11.6)
[2018-04-28] MEDS: CYANOCOBALAMIN (VITAMIN B-12) 1,000 MCG TABLET PO SCH (09:00)
[2018-04-28] MEDS: POTASSIUM CHLORIDE 20 MEQ ERTAB PO SCH ×2 (09:00→20:10)
[2018-04-28] MEDS: FAMOTIDINE 20MG TAB 20 MG TAB PO SCH (09:00)
[2018-04-28] MEDS: FOLIC ACID 1 MG TABLET PO SCH (09:00)
[2018-04-28] MEDS ORDERED: BUPIVACAINE/PF 0.25% 50ML VIAL IJ ONE (11:49)
[2018-04-28] MEDS ORDERED: LIDOCAINE HCL 1% 20 ML VIAL ONE (11:49)
[2018-04-28] MEDS ORDERED: VANCOMYCIN 1GM+NS 250ML 250 ML IV ONE ×2 (11:51→12:14)
[2018-04-28] MEDS ORDERED: BUPIVACAINE/PF 0.25% 30ML VIAL IJ ONE (12:14)
[2018-04-28] MEDS ORDERED: ISOVUE-300 100 ML VIAL IV ONE (12:14)
[2018-04-28] MEDS ORDERED: MEPERIDINE-PF 25 MG/ML SYG ONE ×2 (12:23→13:32)
[2018-04-28] MEDS ORDERED: MIDAZOLAM HCL 1 MG/ML 2ML VIAL ONE ×2 (12:23→13:32)
[2018-04-28] MEDS ORDERED: ACETAMINOPHEN-CODEINE 300/30MG TAB PO PRN ×2 (14:15)
[2018-04-28] MEDS ORDERED: ACETAMINOPHEN 325 MG TAB PO PRN (14:15)
[2018-04-28] MEDS: FUROSEMIDE 20 MG TABLET PO SCH ×2 (15:00→20:10)
[2018-04-28] MEDS: LISINOPRIL 5 MG TABLET PO SCH (15:00)
[2018-04-28] MEDS: ATORVASTATIN CALCIUM 40 MG TABLET PO SCH (20:09)
[2018-04-28] MEDS: POTASSIUM CHLORIDE 10% ELIXIR 20 MEQ/15 ML UDCUP PO PRN (20:09)
[2018-04-29 03:41] VITALS: BP 113/64
[2018-04-29 04:08] LABS: HEMATOCRIT 24.4 % (42-54); MEAN CORPUSCULAR HEMOGLOBIN 26.5 pg (27.0-33.0); MEAN CORPUSCULAR HGB CONC 34.5 g/dL (32.0-36.0); MEAN CORPUSCULAR VOLUME 76.9 fL (79-99); PLATELET COUNT (AUTO) 63 K/uL (130-400); RED BLOOD CELL COUNT(AUTO) 3.18 MIL/uL (4.50-6.20); RED CELL DISTRIBUTION WIDTH 19.4 % (11.0-15.5); WHITE BLOOD COUNT (AUTO) 9.9 K/uL (4.8-10.8)
[2018-04-29 04:17] LABS: CREATININE 0.8 mg/dL (0.5-1.5); POTASSIUM 3.6 mmol/L (3.5-5.1)
[2018-04-29 07:22] VITALS: BP 102/66
[2018-04-29] MEDS: POTASSIUM CHLORIDE 20 MEQ ERTAB PO SCH ×2 (09:00→09:45)
[2018-04-29] MEDS: FOLIC ACID 1 MG TABLET PO SCH (09:42)
[2018-04-29] MEDS: FAMOTIDINE 20MG TAB 20 MG TAB PO SCH (09:42)
[2018-04-29] MEDS: CYANOCOBALAMIN (VITAMIN B-12) 1,000 MCG TABLET PO SCH (09:42)
[2018-04-29] MEDS: LISINOPRIL 5 MG TABLET PO SCH (09:42)
[2018-04-29] MEDS: FUROSEMIDE 20 MG TABLET PO SCH (09:43)
[2018-04-29] MEDS: POTASSIUM CHLORIDE 10% ELIXIR 20 MEQ/15 ML UDCUP PO PRN (09:58)
[2018-04-29 11:42] VITALS: BP 108/55
[2018-04-29] MEDS ORDERED: MAG HYDROX/AL HYDROX/SIMETH ES 30 ML SUSP UDCUP PO SCH (15:30)
[2018-04-29 16:17] VITALS: BP 103/55
== END 2018-04-29 18:00 | disposition home or self-care (01) | DRG 219 ==
LOC: DAHIP 04-21 10:07 → EDSTATUS 04-21 10:30 → 2CV 04-21 16:17 → 2BH 04-22 10:36 → 2DH 04-24 16:46
PROVIDERS: ADMIT Thoracic Surgery (Cardiothoracic Vascular Surgery); ATTEND Thoracic Surgery (Cardiothoracic Vascular Surgery)
PROC: 04U Lower Arteries, Supplement (ICD-10-PCS; 2018-04-21)
PROC: 02RF08Z Replacement of Aortic Valve with Zooplastic Tissue, Open Approach (ICD-10-PCS; principal; 2018-04-21 12:30)
PROC: 30233R1 Transfusion of Nonautologous Platelets into Peripheral Vein, Percutaneous Approach (ICD-10-PCS; 2018-04-27)
PROC: 02HK3KZ Insertion of Defibrillator Lead into Right Ventricle, Percutaneous Approach (ICD-10-PCS; 2018-04-28)
PROC: 0JH609Z Insertion of Cardiac Resynchronization Defibrillator Pulse Generator into Chest Subcutaneous Tissue and Fascia, Open Approach (ICD-10-PCS; 2018-04-28)
PROC: 02H63KZ Insertion of Defibrillator Lead into Right Atrium, Percutaneous Approach (ICD-10-PCS; 2018-04-28)
DX: I35.0 Nonrheumatic aortic (valve) stenosis (principal); I46.9 Cardiac arrest, cause unspecified; I44.2 Atrioventricular block, complete; I11.0 Hypertensive heart disease with heart failure; D69.6 Thrombocytopenia, unspecified; I95.9 Hypotension, unspecified; I42.0 Dilated cardiomyopathy; I50.42 Chronic combined systolic (congestive) and diastolic (congestive) heart failure; I27.21 Secondary pulmonary arterial hypertension; T79.7XXA Traumatic subcutaneous emphysema, initial encounter; I69.354 Hemiplegia and hemiparesis following cerebral infarction affecting left non-dominant side; G52.2 Disorders of vagus nerve; E78.5 Hyperlipidemia, unspecified; I25.10 Atherosclerotic heart disease of native coronary artery without angina pectoris; D53.9 Nutritional anemia, unspecified; D72.829 Elevated white blood cell count, unspecified; E87.6 Hypokalemia; X58.XXXA Exposure to other specified factors, initial encounter; Z95.1 Presence of aortocoronary bypass graft; Z79.899 Other long term (current) drug therapy; Z79.82 Long term (current) use of aspirin
CPT/HCPCS: 31500; 33225; 33249; 36415; 36430; 71045; 71046; 76998; 80048; 80053; 80061; 82330; 82435; 82803; 82947; 82948; 83036; 83605; 83735; 84100; 84132; 84295; 85018; 85025; 85027; 85347; 85610; 85730; 86022; 86850; 86900; 86901; 88305; 88311; 93005; 93306; 93318; 94002; 94003; 94010; 94150; 97039; 99156; 99157; A4218; A7048; C1768; C1769; C1882; C1900; J0171; J0610; J0697; J1100; J1644; J1652; J1815; J2001; J2150; J2175; J2250; J2260; J2270; J2405; J2704; J2710; J2720; J2930; J3010; J3370; J3475; J3480; J3490; J7030; J7040; P9034; P9045; P9047; Q9967

== ENCOUNTER → 2018-05-18 | Outpatient (CLI) | payer BC, MEDICARE | END | disposition home or self-care (01) | LOC: RAH 11:51 | PROVIDERS: ATTEND Internal Medicine Cardiovascular Disease | DX: I87.2 Venous insufficiency (chronic) (peripheral) (principal); R79.1 Abnormal coagulation profile; R60.9 Edema, unspecified | CPT/HCPCS: 93970 ==

== ENCOUNTER → 2018-08-12 | Outpatient (CLI) | payer BC, MEDICARE, OTHER | END | disposition home or self-care (01) | LOC: SHCH 14:36 | PROVIDERS: ATTEND Internal Medicine Cardiovascular Disease | DX: I31.3 Pericardial effusion (noninflammatory) (principal); I11.0 Hypertensive heart disease with heart failure; I50.22 Chronic systolic (congestive) heart failure; E78.5 Hyperlipidemia, unspecified; I25.10 Atherosclerotic heart disease of native coronary artery without angina pectoris; Z95.2 Presence of prosthetic heart valve | CPT/HCPCS: 93306 ==

== ENCOUNTER → 2019-12-22 | Outpatient (CLI) | payer OTHER | END | disposition home or self-care (01) | LOC: SHCH 10:29 | PROVIDERS: ATTEND Internal Medicine Cardiovascular Disease | DX: I05.9 Rheumatic mitral valve disease, unspecified (principal); I42.9 Cardiomyopathy, unspecified; Z95.2 Presence of prosthetic heart valve | CPT/HCPCS: 93306; 93356 ==

== ENCOUNTER → 2022-11-07 | Outpatient (CLI) | payer OTHER ==
[~2022-11-07] MED LIST changes: +LISI2.5T13 PO; -LISI2.5T2 PO
== END | disposition home or self-care (01) ==
LOC: SHCH 09:39
PROVIDERS: ATTEND Internal Medicine Cardiovascular Disease
DX: I11.9 Hypertensive heart disease without heart failure (principal); E78.5 Hyperlipidemia, unspecified; Z95.3 Presence of xenogenic heart valve
CPT/HCPCS: 93306

== ENCOUNTER 2024-03-17 06:41 | Day surgery (SDC) | payer OTHER ==
[2024-03-15 10:44] LABS: BASOPHILS # (AUTO) 0.06 K/uL (0.00-0.20); BASOPHILS % (AUTO) 0.8 % (0.0-5.0); EOSINOPHILS # (AUTO) 0.25 K/uL (0.00-0.70); EOSINOPHILS % (AUTO) 3.5 % (0.0-8.0); HEMATOCRIT 37.2 % (42-54); IMMATURE GRANULOCYTE ABSOLUTE 0.05 K/uL (0-1); LYMPHOCYTES # (AUTO) 1.5 K/uL (1.0-4.8); LYMPHOCYTES % (AUTO) 20.4 % (21.0-51.0); MEAN CORPUSCULAR HEMOGLOBIN 31.7 pg (27.0-33.0); MEAN CORPUSCULAR HGB CONC 33.9 g/dL (32.0-36.0); MEAN CORPUSCULAR VOLUME 93.5 fL (79-99); MONOCYTES # (AUTO) 0.7 K/uL (0.1-1.0); MONOCYTES % (AUTO) 9.2 % (3.0-13.0); NEUTROPHILS # (AUTO) 4.7 K/uL (1.8-7.7); NEUTROPHILS % (AUTO) 65.4 % (40.0-77.0); PLATELET COUNT (AUTO) 168 K/uL (130-400); RED BLOOD CELL COUNT(AUTO) 3.98 MIL/uL (4.50-6.20); RED CELL DISTRIBUTION WIDTH 13.6 % (11.0-15.5); WHITE BLOOD COUNT (AUTO) 7.2 K/uL (4.8-10.8)
[2024-03-15 10:48] LABS: INR 1.08 (0.85-1.15); PROTHROMBIN TIME 12.7 SEC (9.6-11.6)
[2024-03-15 10:49] LABS: PARTIAL THROMBOPLASTIN TIME 35.5 SEC (26.3-35.5)
[2024-03-15 10:56] LABS: CREATININE 0.9 mg/dL (0.5-1.3); POTASSIUM 4.8 mmol/L (3.5-5.1)
[2024-03-15 10:59] VITALS: BP 170/86; PULSE 60; RESP 16
[~2024-03-17] VITALS: Ht 162.6 cm; Wt 76.8 kg
[2024-03-17] VITALS (8 sets, daily range): BP systolic 105–150; BP diastolic 53–77; PULSE 70–71; RESP 14–20
[~2024-03-17 06:41] MED LIST changes: +APIX5TAB PO; +ASPI-1197 PO; +CARV12.580 PO; -CARV6.25 PO; -FURO40TA5 PO; -LISI2.5T13 PO; +OLME-9 PO; -POTA10TA14 PO
[2024-03-17] MEDS: 0.9%NACL 1000ML 1,000 ML IV ONE (07:56)
[2024-03-17] MEDS ORDERED: LIDOCAINE HCL 1% MDV 50ML VIAL ONE (09:20)
[2024-03-17] MEDS ORDERED: MEPERIDINE-PF 25 MG/ML SYG ONE (09:20)
[2024-03-17] MEDS ORDERED: VANCOMYCIN 1G/250ML KIT 500 ML IV ONE (09:20)
[2024-03-17] MEDS ORDERED: MIDAZOLAM HCL 1 MG/ML 2ML VIAL ONE (09:21)
[2024-03-17] MEDS ORDERED: BUPIVACAINE/PF 0.25% 30ML VIAL IJ ONE (09:21)
[2024-03-17] MEDS ORDERED: BACITRACIN 1 EACH PACKET TP ONE (10:39)
[2024-03-17] MEDS ORDERED: TRAM50TA4 PO (10:58)
[2024-03-17] MEDS ORDERED: ACETAMINOPHEN 500 MG TABLET PO PRN (11:00)
[2024-03-17] MEDS ORDERED: ACETAMINOPHEN WITH CODEINE 1 TAB TAB PO PRN (11:00)
== END 2024-03-17 14:15 | disposition home or self-care (01) ==
LOC: DAH 06:41
PROVIDERS: ATTEND Internal Medicine Cardiovascular Disease
DX: Z45.02 Encounter for adjustment and management of automatic implantable cardiac defibrillator (principal); I44.2 Atrioventricular block, complete; I45.19 Other right bundle-branch block; I25.2 Old myocardial infarction; Z79.01 Long term (current) use of anticoagulants; Z79.82 Long term (current) use of aspirin; Z79.899 Other long term (current) drug therapy
CPT/HCPCS: 80048; 85025; 85610; 85730; 36415; 93005; 33264; C1882; J7030; J0665; J2250; J3370; J2175; J3490; A4215; A4222; A4221; A4663; A4216; A4606; A4223 ×3; 99156; 99157

== ENCOUNTER → 2024-04-28 | Outpatient (CLI) | payer OTHER ==
[~2024-04-28] MED LIST changes: +OLME-30 PO; -OLME-9 PO; +TRAM50TA4 PO
== END | disposition home or self-care (01) ==
LOC: SHCH 10:30
PROVIDERS: ATTEND Internal Medicine Cardiovascular Disease
DX: I34.0 Nonrheumatic mitral (valve) insufficiency (principal); I10 Essential (primary) hypertension; E78.5 Hyperlipidemia, unspecified; Z95.3 Presence of xenogenic heart valve
CPT/HCPCS: 93306